=== PATIENT | male | born 1990 | race African-American/Black ===

== ENCOUNTER 2017-06-19 19:24 | Emergency (ER) | payer MEDICAID ==
[2017-06-19 20:35] LABS: BASOPHILS 0.1 % (0-2); EOSINOPHILS 1.5 % (0-7); HEMATOCRIT 48.5 % (42.0-54.0); IMMATURE GRANULOCYTES 0.2 % (0-5); LYMPHOCYTES 29.2 % (15-50); MCH 33.9 pg (26.0-34.0); MCHC 35.1 g/dL (31.0-37.0); MCV 96.8 fL (80.0-100.0); MEAN PLATELET VOLUME 10.4 fL (7.4-10.4); MONOCYTES 9.2 % (2-11); NEUTROPHILS 59.8 % (40-80); PLATELET COUNT 176 10x3/uL (130-400); RBC 5.01 10x6/uL (4.20-6.10); RDW 12.4 % (11.5-14.5); WBC 10.4 10x3/uL (4.8-10.8)
== END 2017-06-19 21:02 | disposition home or self-care (01) ==
LOC: D.ER 19:24
PROVIDERS: Emergency Medicine
DX: K29.00 Acute gastritis without bleeding (principal); K21.9 Gastro-esophageal reflux disease without esophagitis; Z87.11 Personal history of peptic ulcer disease; R11.10 Vomiting, unspecified; F17.200 Nicotine dependence, unspecified, uncomplicated

== ENCOUNTER 2018-01-21 17:47 | Emergency (ER) | payer MEDICAID ==
[2018-01-21 19:04] LABS: BASOPHILS 0.4 % (0-2); EOSINOPHILS 2.1 % (0-7); HEMATOCRIT 49.9 % (42.0-54.0); HEMOGLOBIN 17.8 g/dL (13.5-17.5); IMMATURE GRANULOCYTES 0.1 % (0-5); LYMPHOCYTES 37.9 % (15-50); MCH 33.4 pg (26.0-34.0); MCHC 35.7 g/dL (31.0-37.0); MCV 93.6 fL (80.0-100.0); MEAN PLATELET VOLUME 10.3 fL (7.4-10.4); MONOCYTES 12.1 % (2-11); NEUTROPHILS 47.4 % (40-80); PLATELET COUNT 176 10x3/uL (130-400); RBC 5.33 10x6/uL (4.20-6.10); RDW 12.2 % (11.5-14.5); WBC 8.2 10x3/uL (4.8-10.8)
[2018-01-21 19:20] LABS: ALBUMIN 3.5 g/dL (3.4-5.0); ALKALINE PHOSPHATASE 93 U/L (46-116); ALT (SGPT) 22 U/L (10-68); AMYLASE - SERUM 136 U/L (25-115); CALC OSMOLALITY 277 mosm/kg (275-300); CALCIUM 8.6 mg/dL (8.5-10.1); CARBON DIOXIDE 28.8 mmol/L (21.0-32.0); CHLORIDE - SERUM 105 mmol/L (98-107); CREATININE - SERUM 1.1 mg/dL (0.6-1.3); GLUCOSE 104 mg/dL (74-106); LIPASE 97 U/L (73-393); POTASSIUM - SERUM 3.8 mmol/L (3.5-5.1); PROTEIN - SERUM 7.4 g/dL (6.4-8.2); SODIUM 139 mmol/L (136-145); UREA NITROGEN 13 mg/dL (7-18); eGFR NON AFRICAN AMERICAN 85 mL/min (90-120)
[2018-01-21 19:26] LABS: APPEARANCE CLEAR (CLEAR); BILIRUBIN NEGATIVE (NEGATIVE); COLOR DK YELLOW (YELLOW); GLUCOSE NEGATIVE (NEGATIVE); KETONE NEGATIVE (NEGATIVE); NITRITE NEGATIVE (NEGATIVE); PROTEIN TRACE mg/dL (NEGATIVE); SPECIFIC GRAVITY 1.025 (1.005-1.020); UROBILINOGEN NORMAL (NORMAL)
== END 2018-01-21 21:52 | disposition home or self-care (01) ==
LOC: D.ER 17:47
PROVIDERS: Family Medicine
DX: K59.00 Constipation, unspecified (principal); R11.10 Vomiting, unspecified; K21.9 Gastro-esophageal reflux disease without esophagitis; F17.200 Nicotine dependence, unspecified, uncomplicated

== ENCOUNTER 2018-02-15 23:03 | Emergency (ER) | payer MEDICAID ==
[~2018-02-15] VITALS: Ht 175.3 cm; Wt 77.3 kg
[2018-02-15 23:15] VITALS: Ht 175.3 cm; Wt 77.3 kg
[2018-02-15] MEDS ORDERED: HYDROCODONE-APA1 TAB PO (23:47)
[2018-02-15] MEDS ORDERED: PENICILLIN V P500 MG PO (23:47)
[2018-02-15 23:55] VITALS: BP 122/77
== END 2018-02-15 23:58 | disposition home or self-care (01) ==
LOC: D.ER 23:03
DX: K04.7 Periapical abscess without sinus (principal); K08.89 Other specified disorders of teeth and supporting structures; R11.2 Nausea with vomiting, unspecified; F17.200 Nicotine dependence, unspecified, uncomplicated

== ENCOUNTER 2018-12-18 22:56 | Emergency (ER) | payer MEDICAID ==
[~2018-12-18] VITALS: Ht 175.3 cm; Wt 70.5 kg
[~2018-12-18 22:56] MED LIST: HYDROCODONE-APA1 TAB PO; PENICILLIN V P500 MG PO
[2018-12-18 23:10] VITALS: Ht 175.3 cm; Wt 70.5 kg
[2018-12-18 23:39] LABS: BASOPHILS 0.2 % (0-2); EOSINOPHILS 2.9 % (0-7); HEMATOCRIT 47.6 % (42.0-54.0); HEMOGLOBIN 16.7 g/dL (13.5-17.5); IMMATURE GRANULOCYTES 0.2 % (0-5); LYMPHOCYTES 30.3 % (15-50); MCH 33.4 pg (26.0-34.0); MCHC 35.1 g/dL (31.0-37.0); MCV 95.2 fL (80.0-100.0); MEAN PLATELET VOLUME 10.4 fL (7.4-10.4); MONOCYTES 8.7 % (2-11); NEUTROPHILS 57.7 % (40-80); PLATELET COUNT 189 10x3/uL (130-400); WBC 12.6 10x3/uL (4.8-10.8)
[2018-12-18 23:47] LABS: ALBUMIN 3.1 g/dL (3.4-5.0); ALKALINE PHOSPHATASE 81 U/L (46-116); ALT (SGPT) 17 U/L (10-68); AMYLASE - SERUM 191 U/L (25-115); BILIRUBIN - TOTAL 0.24 mg/dL (0.2-1.3); CALC OSMOLALITY 276 mosm/kg (275-300); CALCIUM 8.3 mg/dL (8.5-10.1); CARBON DIOXIDE 28.2 mmol/L (21.0-32.0); CHLORIDE - SERUM 103 mmol/L (98-107); CREATININE - SERUM 1.2 mg/dL (0.6-1.3); GLUCOSE 85 mg/dL (74-106); LIPASE 113 U/L (73-393); PROTEIN - SERUM 6.9 g/dL (6.4-8.2); SODIUM 139 mmol/L (136-145); UREA NITROGEN 12 mg/dL (7-18); eGFR NON AFRICAN AMERICAN 77 mL/min (90-120)
[2018-12-18 23:59] LABS: APPEARANCE CLEAR (CLEAR); BILIRUBIN NEGATIVE (NEGATIVE); COLOR YELLOW (YELLOW); GLUCOSE NEGATIVE (NEGATIVE); KETONE NEGATIVE (NEGATIVE); NITRITE NEGATIVE (NEGATIVE); PROTEIN NEGATIVE (NEGATIVE); UROBILINOGEN NORMAL (NORMAL)
[2018-12-19] MEDS ORDERED: CARAFATE1 G PO (01:04)
[2018-12-19] MEDS ORDERED: ZOFRAN4 MG PO (01:04)
[2018-12-19] MEDS ORDERED: OMEPRAZOLE20 M1 PO (01:04)
[2018-12-19 02:12] VITALS: BP 118/70
== END 2018-12-19 02:13 | disposition home or self-care (01) ==
LOC: D.ER 22:56
PROVIDERS: Family Medicine
DX: K29.70 Gastritis, unspecified, without bleeding (principal); R11.2 Nausea with vomiting, unspecified

== ENCOUNTER 2019-02-11 15:16 | Emergency (ER) | payer MEDICAID ==
[~2019-02-11] VITALS: Ht 175.3 cm; Wt 63.6 kg
[~2019-02-11 15:16] MED LIST changes: +CARAFATE1 G PO; +OMEPRAZOLE20 M1 PO; +ZOFRAN4 MG PO
[2019-02-11 15:29] VITALS: Ht 175.3 cm; Wt 63.6 kg
[2019-02-11 16:04] LABS: BASOPHILS 0.1 % (0-2); EOSINOPHILS 0.2 % (0-7); HEMATOCRIT 47.5 % (42.0-54.0); IMMATURE GRANULOCYTES 0.3 % (0-5); LYMPHOCYTES 21.4 % (15-50); MCH 33.6 pg (26.0-34.0); MCHC 35.8 g/dL (31.0-37.0); MCV 93.9 fL (80.0-100.0); MEAN PLATELET VOLUME 10.3 fL (7.4-10.4); MONOCYTES 6.4 % (2-11); NEUTROPHILS 71.6 % (40-80); PLATELET COUNT 205 10x3/uL (130-400); RBC 5.06 10x6/uL (4.20-6.10); WBC 15.3 10x3/uL (4.8-10.8)
[2019-02-11 16:06] LABS: APPEARANCE CLEAR (CLEAR); COLOR YELLOW (YELLOW); GLUCOSE NEGATIVE (NEGATIVE); NITRITE NEGATIVE (NEGATIVE); PROTEIN NEGATIVE (NEGATIVE)
[2019-02-11 16:07] LABS: BILIRUBIN NEGATIVE (NEGATIVE); KETONE SMALL mg/dL (NEGATIVE); UROBILINOGEN NORMAL (NORMAL)
[2019-02-11 16:43] LABS: ALBUMIN 3.5 g/dL (3.4-5.0); ALKALINE PHOSPHATASE 99 U/L (46-116); ALT (SGPT) 24 U/L (10-68); AMYLASE - SERUM 76 U/L (25-115); BILIRUBIN - TOTAL 0.56 mg/dL (0.2-1.3); CALC OSMOLALITY 276 mosm/kg (275-300); CALCIUM 8.6 mg/dL (8.5-10.1); CARBON DIOXIDE 26.9 mmol/L (21.0-32.0); CHLORIDE - SERUM 103 mmol/L (98-107); GLUCOSE 80 mg/dL (74-106); LIPASE 68 U/L (73-393); POTASSIUM - SERUM 3.9 mmol/L (3.5-5.1); PROTEIN - SERUM 7.4 g/dL (6.4-8.2); SODIUM 139 mmol/L (136-145); UREA NITROGEN 12 mg/dL (7-18); eGFR NON AFRICAN AMERICAN > 90 mL/min (90-120)
[2019-02-11] MEDS ORDERED: ONDANSETRON8 MG/TAB PO (16:54)
[2019-02-11 17:19] VITALS: BP 130/79
== END 2019-02-11 17:20 | disposition home or self-care (01) ==
LOC: D.ER 15:16
PROVIDERS: Family Medicine
DX: K52.9 Noninfective gastroenteritis and colitis, unspecified (principal); R11.2 Nausea with vomiting, unspecified

== ENCOUNTER 2019-02-19 05:58 | Emergency (ER) | payer MEDICAID ==
[~2019-02-19] VITALS: Ht 175.3 cm; Wt 67.7 kg
[~2019-02-19 05:58] MED LIST changes: +ONDANSETRON8 MG/TAB PO
[2019-02-19 06:07] VITALS: Ht 175.3 cm; Wt 67.7 kg
[2019-02-19 07:58] VITALS: BP 128/72
== END 2019-02-19 07:59 | disposition home or self-care (01) ==
LOC: D.ER 05:58
DX: G43.909 Migraine, unspecified, not intractable, without status migrainosus (principal)

== ENCOUNTER 2019-03-31 07:02 | Emergency (ER) | payer MEDICAID ==
[~2019-03-31] VITALS: Ht 175.3 cm; Wt 61.4 kg
[2019-03-31 07:38] VITALS: Ht 175.3 cm; Wt 61.4 kg
[2019-03-31 08:10] LABS: BASOPHILS 0.2 % (0-2); EOSINOPHILS 1.2 % (0-7); HEMATOCRIT 49.9 % (42.0-54.0); HEMOGLOBIN 17.9 g/dL (13.5-17.5); IMMATURE GRANULOCYTES 0.3 % (0-5); LYMPHOCYTES 23.1 % (15-50); MCH 33.4 pg (26.0-34.0); MCHC 35.9 g/dL (31.0-37.0); MCV 93.1 fL (80.0-100.0); MONOCYTES 7.1 % (2-11); NEUTROPHILS 68.1 % (40-80); PLATELET COUNT 180 10x3/uL (130-400); RBC 5.36 10x6/uL (4.20-6.10); RDW 12.2 % (11.5-14.5); WBC 11.9 10x3/uL (4.8-10.8)
[2019-03-31 08:13] LABS: ALBUMIN 3.7 g/dL (3.4-5.0); ALKALINE PHOSPHATASE 105 U/L (46-116); ALT (SGPT) 20 U/L (10-68); BILIRUBIN - TOTAL 0.85 mg/dL (0.2-1.3); CALC OSMOLALITY 278 mosm/kg (275-300); CALCIUM 8.9 mg/dL (8.5-10.1); CARBON DIOXIDE 29.1 mmol/L (21.0-32.0); CHLORIDE - SERUM 104 mmol/L (98-107); CREATININE - SERUM 1.2 mg/dL (0.6-1.3); GLUCOSE 86 mg/dL (74-106); POTASSIUM - SERUM 4.1 mmol/L (3.5-5.1); PROTEIN - SERUM 7.8 g/dL (6.4-8.2); SODIUM 141 mmol/L (136-145); UREA NITROGEN 10 mg/dL (7-18); eGFR NON AFRICAN AMERICAN 77 mL/min (90-120)
[2019-03-31 08:16] LABS: AMYLASE - SERUM 150 U/L (25-115); LIPASE 62 U/L (73-393); TROPONIN-I < 0.017 ng/mL (0.000-0.060)
[2019-03-31] MEDS ORDERED: CARAFATE1 G/10 ML PO (09:48)
[2019-03-31] MEDS ORDERED: ZOFRAN ODT4 MG/UDTAB PO (09:48)
[2019-03-31 10:08] VITALS: BP 117/66
== END 2019-03-31 10:08 | disposition home or self-care (01) ==
LOC: D.ER 07:02
PROVIDERS: Family Medicine
DX: K29.70 Gastritis, unspecified, without bleeding (principal)